=== PATIENT | female | born 1940 ===

== ENCOUNTER → 2018-01-20 | Emergency (ER) | payer OTHER ==
[~2018-01-20] VITALS: Ht 152.4 cm; Wt 59.0 kg
== END | disposition home or self-care (01) ==
LOC: ER 00:04
DX: K59.09 Other constipation (principal); N39.0 Urinary tract infection, site not specified; R10.32 Left lower quadrant pain; R10.31 Right lower quadrant pain; R82.79 Other abnormal findings on microbiological examination of urine